=== PATIENT | male | born 1995 | race African-American/Black ===

== ENCOUNTER 2020-09-25 01:14 | Emergency (ER) | payer BC ==
[2020-09-25] MEDS ORDERED: Lidocaine 4% Top Soln 50 ML Bottle MUCMEM ONE (01:47)
--- NOTE | 2020-09-25 01:51 | EDM.PDOC ---
ED HPI GENERAL MEDICAL PROBLEM - General Chief Complaint: ENT Problem Stated Complaint: ABSCESS TOOTH Time Seen by Provider: 09/25/20 01:48 Source of Information: Reports: Patient - History of Present Illness INITIAL COMMENTS - FREE TEXT/NARRATIVE: 25-year-old male presents today for tooth pain. Patient states the past few months has been having pain of his left side upper and lower wisdom tooth. Pat ient was. Teeth pulled but recently moved from [place]. Patient has a ointment scheduled with Tuesday to see dentist. Patient is try Listerine, Motrin, Tylenol and other remedies at home without relief of pain. Patient denies any fever chills no gum tenderness or swelling. Left Tooth/Teeth Pain Score (Numeric/FACES): 8 - Related Data Allergies Allergy/AdvReac Type Severity Reaction Status Date / Time No Known Allergies Allergy Verified 09/25/20 01:42 Home Meds: Home Meds . [No Known Home Meds] 09/25/20 [History] ED ROS ENT - Review of Systems Review Of Systems: Comprehensive ROS is negative, except as noted in HPI. Constitutional: Reports: No Symptoms HEENT: Reports: No Symptoms Respiratory: Reports: No Symptoms Endocrine: Reports: No Symptoms GI/Abdominal: Reports: No Symptoms : Reports: No Symptoms Musculoskeletal: Reports: No Symptoms Skin: Reports: No Symptoms Neurological: Reports: No Symptoms Psychiatric: Reports: No Symptoms Hematologic/Lymphatic: Reports: No Symptoms Immunologic: Reports: No Symptoms ED EXAM, ENT - Physical Exam Exam: See Below Exam Limited By: No Limitations General Appearance: Alert, No Apparent Distress Mouth/Throat: Normal Gums, Normal Lips, Normal Oropharynx, Dental Pain. No: Dental Abcess, Throat Swelling, Tonsillar Erythema Respiratory/Chest: No Respiratory Distress. No: No Accessory Muscle Use Cardiovascular: Regular Rate, Rhythm Course - Vital Signs Last Recorded V/S: Last Vital Signs Temp 96.7 F L 09/25/20 01:36 Pulse 60 09/25/20 01:36 Resp 14 09/25/20 01:36 BP 127/86 09/25/20 01:36 Pulse Ox 98 09/25/20 01:36 - Orders/Labs/Meds Meds: Medications Discontinued Medications Generic Name Dose Route Start Last Admin Trade Name Freq PRN Reason Stop Dose Admin Lidocaine HCl 5 ml 09/25/20 01:47 09/25/20 01:59 Xylocaine 4% Top Soln MUCMEM 09/25/20 01:48 Not Given ONETIME ONE Lidocaine HCl 15 ml 09/25/20 02:01 09/25/20 02:10 Xylocaine 2% Viscous PO 09/25/20 02:02 15 ml ONETIME ONE Administration Lidocaine HCl Confirm 09/25/20 02:01 09/25/20 02:16 Xylocaine 2% Viscous Administered 09/25/20 02:02 Not Given Dose 15 ml .ROUTE .STK-MED ONE Departure - Departure Time of Disposition: 02:55 Disposition: Home, Self-Care 01 Condition: Good Clinical Impression: Dental caries - Discharge Information *PRESCRIPTION DRUG MONITORING PROGRAM REVIEWED*: Not Applicable *COPY OF PRESCRIPTION DRUG MONITORING REPORT IN PATIENT LORRI: Not Applicable Instructions: Preventive Dental Care, Adult Referrals: PCP,None [Primary Care Provider] - Forms: ED Department Discharge Additional Instructions: The following information is given to patients seen in the emergency department who are being discharged to home. This information is to outline your options for follow-up care. We provide all patients seen in our emergency department with a follow-up referral. The need for follow-up, as well as the timing and circumstances, are variable depending upon the specifics of your emergency department visit. If you don't have a primary care physician on staff, we will provide you with a referral. We always advise you to contact your personal physician following an emergency department visit to inform them of the circumstance of the visit and for follow-up with them and/or the need for any referrals to a consulting specialist. The emergency department will also refer you to a specialist when appropriate. This referral assures that you have the opportunity for follow-up care with a specialist. All of these measure are taken in an effort to provide you with optimal care, which includes your follow-up. Under all circumstances we always encourage you to contact your private physician who remains a resource for coordinating your care. When calling for follow-up care, please make the office aware that this follow-up is from your recent emergency room visit. If for any reason you are refused follow-up, please contact the [facility] Emergency Department at and asked to speak to the emergency department charge nurse. Please follow up with your primary care physician. If you do not have a primary care physician, see below: [facility] [address] [place] [address] My [facility] [address] [place] [address] Follow-up with the dentist next week. You likely require to have using the pool. Please take Tylenol Motrin for the pain. Please try to avoid any cold drinks as it may irritate your cavities as well. Sepsis Event Note (ED) - Evaluation Sepsis Screening Result: No Definite Risk - Focused Exam Vital Signs: Vital Signs Temp Pulse Resp BP Pulse Ox 09/25/20 01:36 96.7 F L 60 14 127/86 98 - Assessment/Plan Plan: Patient is a 25-year-old male who presents today for dental pain. On exam patient has some pain over his back upper and lower wisdom teeth. No gum tenderness or swelling. We will try to provide pain control and reassess. Patient pain is controlled patient has appointment scheduled with dentist already next week will be discharged home.
[2020-09-25] MEDS ORDERED: Lidocaine 2% Viscous Solution 100 ML Bottle PO ONE (01:58)
[2020-09-25] MEDS ORDERED: Lidocaine 2% Viscous Solution 15 ML Cup ONE (02:01)
[2020-09-25] MEDS ORDERED: Lidocaine 2% Viscous Solution 15 ML Cup PO ONE (02:01)
== END 2020-09-25 03:05 | disposition home or self-care (01) ==
LOC: MW.ED 01:14
DX: K02.9 Dental caries, unspecified (principal)
CPT/HCPCS: 99282; A9270